=== PATIENT | female | born 1970 | race Hispanic/Latino ===

== ENCOUNTER 2022-01-06 18:47 | Emergency (ER) | payer OTHER, BC ==
[~2022-01-06] VITALS: Ht 167.6 cm; Wt 115.2 kg
[2022-01-06 18:48] VITALS: BP 159/79
[2022-01-06] MEDS ORDERED: IBUPROFEN 600 MG TABLET ONE (19:50)
[2022-01-06] MEDS ORDERED: CYCLOBENZAPRINE HCL 10 MG TABLET ONE (19:51)
[2022-01-06] MEDS ORDERED: CYCLOBENZAPRINE HCL 10 MG TABLET PO ONE (20:00)
[2022-01-06] MEDS ORDERED: IBUPROFEN 600 MG TABLET PO ONE (20:00)
[2022-01-06] MEDS ORDERED: CYCL10TA16 PO (20:30)
[2022-01-06] MEDS ORDERED: IBUP-2070 PO (20:30)
== END 2022-01-06 20:56 | disposition home or self-care (01) ==
LOC: EDH 18:47
DX: M25.512 Pain in left shoulder (principal); R07.89 Other chest pain; V89.2XXA Person injured in unspecified motor-vehicle accident, traffic, initial encounter; Y93.89 Activity, other specified; Y92.89 Other specified places as the place of occurrence of the external cause; Y99.8 Other external cause status
CPT/HCPCS: 71045; 73000

== ENCOUNTER → 2023-04-08 | Outpatient (CLI) | payer BC, OTHER ==
[~2023-04-08] MED LIST: CYCL10TA16 PO; IBUP-2070 PO
== END | disposition home or self-care (01) ==
LOC: RAH 13:54
PROVIDERS: ATTEND Nurse Practitioner Family
DX: S83.281A Other tear of lateral meniscus, current injury, right knee, initial encounter (principal); M25.561 Pain in right knee; M22.41 Chondromalacia patellae, right knee; M25.461 Effusion, right knee; M17.11 Unilateral primary osteoarthritis, right knee; X58.XXXA Exposure to other specified factors, initial encounter; Y93.89 Activity, other specified; Y92.89 Other specified places as the place of occurrence of the external cause; Y99.8 Other external cause status
CPT/HCPCS: 73721